=== PATIENT | female | born 1990 | race Caucasian/White ===

== ENCOUNTER 2019-04-02 14:05 | Observation (INO) | payer MEDICAID ==
[2019-04-02] MEDS ORDERED: PREN-96 PO (14:32)
== END 2019-04-02 15:45 | disposition home or self-care (01) | DRG 566 ==
LOC: LDRP 14:05
PROVIDERS: ADMIT Obstetrics & Gynecology; ATTEND Obstetrics & Gynecology
DX: O26.892 Other specified pregnancy related conditions, second trimester (principal); O36.8130 Decreased fetal movements, third trimester, not applicable or unspecified; R10.9 Unspecified abdominal pain; Z3A.25 25 weeks gestation of pregnancy
CPT/HCPCS: 59025; 81002; G0378

== ENCOUNTER 2019-06-27 16:35 | Observation (INO) | payer MEDICAID ==
[~2019-06-27 16:35] MED LIST: PREN-96 PO
[2019-06-27] MEDS ORDERED: ALBUAER3 IN (17:35)
== END 2019-06-27 18:40 | disposition home or self-care (01) | DRG 566 ==
LOC: LDRP 16:35
PROVIDERS: ADMIT Specialist; ATTEND Specialist
DX: O62.9 Abnormality of forces of labor, unspecified (principal); O36.8130 Decreased fetal movements, third trimester, not applicable or unspecified; Z3A.38 38 weeks gestation of pregnancy
CPT/HCPCS: 59025; 76818; 81002; G0378

== ENCOUNTER 2019-06-28 09:02 | Observation (INO) | payer MEDICAID ==
[~2019-06-28 09:02] MED LIST changes: +ALBUAER3 IN
== END 2019-06-28 10:40 | disposition home or self-care (01) | DRG 566 ==
LOC: LDRP 09:02
PROVIDERS: ADMIT Specialist; ATTEND Specialist
DX: O41.03X0 Oligohydramnios, third trimester, not applicable or unspecified (principal); J45.909 Unspecified asthma, uncomplicated; O99.513 Diseases of the respiratory system complicating pregnancy, third trimester; Z3A.38 38 weeks gestation of pregnancy
CPT/HCPCS: 59025; 76818; 81002; G0378

== ENCOUNTER 2019-07-01 08:50 | Observation (INO) | payer MEDICAID ==
[2019-07-01] MEDS ORDERED: FAM20T PO (10:08)
== END 2019-07-01 12:20 | disposition home or self-care (01) | DRG 566 ==
LOC: LDRP 09:20
PROVIDERS: ADMIT Specialist; ATTEND Specialist
DX: O41.03X0 Oligohydramnios, third trimester, not applicable or unspecified (principal); O26.893 Other specified pregnancy related conditions, third trimester; J45.909 Unspecified asthma, uncomplicated; R11.0 Nausea; O99.513 Diseases of the respiratory system complicating pregnancy, third trimester; Z3A.38 38 weeks gestation of pregnancy
CPT/HCPCS: 59025; 76818; 81002; G0378

== ENCOUNTER 2019-07-04 10:50 | Observation (INO) | payer MEDICAID ==
[~2019-07-04 10:50] MED LIST changes: +FAM20T PO
== END 2019-07-04 12:43 | disposition home or self-care (01) | DRG 566 ==
LOC: LDRP 10:50
PROVIDERS: ADMIT Obstetrics & Gynecology; ATTEND Obstetrics & Gynecology
DX: O99.513 Diseases of the respiratory system complicating pregnancy, third trimester (principal); J45.909 Unspecified asthma, uncomplicated; Z3A.39 39 weeks gestation of pregnancy
CPT/HCPCS: 59025; 76818; 81002; G0378

== ENCOUNTER 2019-07-07 08:30 | Observation (INO) | payer MEDICAID ==
[2019-07-07 11:16] LABS: Basophils # (auto) 0.1 uL; Red Blood Cells 4.19 10^6/uL (4.0-5.20)
[2019-07-07 11:17] LABS: Basophils % (auto) 0.5 % (0.0-2.0); Eosinophils # (auto) 0.2 uL; Eosinophils % (auto) 1.2 % (0.0-7.0); Hematocrit 31.1 % (36.0-46.0); Lymphocytes # (auto) 2.1 uL; Lymphocytes % (auto) 15.9 % (10.0-50.0); Mean Corpuscular Hgb Conc. 32.3 g/dL (32.0-36.0); Mean Corpuscular Volume 74.2 fL (80.0-100.0); Monocytes # (auto) 0.8 uL; Monocytes % (auto) 6.1 % (0.0-12.0); Neutrophils # (auto) 10.2 uL; Neutrophils % (auto) 76.3 % (37.0-80.0); Platelet Count (auto) 433 10^3/uL (140-450); White Blood Cell 13.3 10^3/uL (4.4-10.8)
[2019-07-08 05:06] LABS: RPR Non Reactive (Non Reactive)
== END 2019-07-07 11:03 | disposition home or self-care (01) | DRG 566 ==
LOC: LDRP 08:30
PROVIDERS: ADMIT Specialist; ATTEND Specialist
DX: O62.9 Abnormality of forces of labor, unspecified (principal); O26.893 Other specified pregnancy related conditions, third trimester; J45.909 Unspecified asthma, uncomplicated; R51 Headache; O99.513 Diseases of the respiratory system complicating pregnancy, third trimester; Z3A.39 39 weeks gestation of pregnancy
CPT/HCPCS: 36415; 59025; 76818; 81002; 85025; 86592; G0378

== ENCOUNTER 2019-07-09 13:42 | Observation (INO) | payer MEDICAID | END 2019-07-09 14:45 | disposition home or self-care (01) | DRG 566 | LOC: LDRP 13:42 | PROVIDERS: ADMIT Obstetrics & Gynecology; ATTEND Obstetrics & Gynecology | DX: O99.513 Diseases of the respiratory system complicating pregnancy, third trimester (principal); J45.909 Unspecified asthma, uncomplicated; Z3A.39 39 weeks gestation of pregnancy | CPT/HCPCS: 59025; 76818; 81002; G0378 ==

== ENCOUNTER 2019-08-26 09:10 | Day surgery (SDC) | payer MEDICAID ==
[~2019-08-26] VITALS: Ht 170.2 cm; Wt 97.1 kg
[~2019-08-26 09:10] MED LIST changes: +IBU600T PO
[2019-08-26] MEDS ORDERED: ceFAZolin 1GM/50ML 50 ML IV ONE ×2 (09:21→09:22)
[2019-08-26] MEDS ORDERED: SODIUM CHLORIDE LOCK 10 ML ONE (09:23)
[2019-08-26] MEDS ORDERED: ONDANSETRON HCL 4 MG/2 ML VIAL ONE (09:23)
[2019-08-26] MEDS ORDERED: PROPOFOL 10 MG/ML 20 ML IV ONE (09:23)
[2019-08-26] MEDS ORDERED: MEPERIDINE HCL (25 MG/ML) 1ML VIAL ONE (09:23)
[2019-08-26] MEDS ORDERED: MIDAZOLAM HCL 1MG/1ML-2 ML VIAL ONE (09:23)
[2019-08-26] MEDS ORDERED: ROCURONIUM 10MG/ML 10ML VIAL IV ONE (09:23)
[2019-08-26] MEDS ORDERED: fentaNYL CITRATE 100 MCG/2 ML VL ONE (09:23)
[2019-08-26] MEDS ORDERED: SUCCINYLCHOLINE CHLORIDE 20 MG/ML 10ML VIAL IV ONE (09:35)
[2019-08-26] MEDS ORDERED: KETOROLAC TROMETH 30 MG/ML 1ML VIAL IV ONE (09:45)
[2019-08-26] MEDS ORDERED: METOCLOPRAMIDE HCL 5MG/ml INJ 2ml VIAL IV PRN (09:45)
[2019-08-26] MEDS ORDERED: fentaNYL CITRATE 100 MCG/2 ML VL IV PRN (09:45)
[2019-08-26] MEDS ORDERED: MORPHINE SULFATE 4 MG/ML SYR/VIAL IV PRN (09:45)
[2019-08-26] MEDS ORDERED: GLYCOPYRROLATE 0.2 MG/ML 1ML VIAL ONE (10:26)
[2019-08-26] MEDS ORDERED: NEOSTIGMINE 1 MG/ML INJ (10mg/10ML VIAL) ONE (10:26)
[2019-08-26] MEDS ORDERED: KETOROLAC TROMETH 60MG/2ML VIAL ONE (10:44)
[2019-08-26] MEDS ORDERED: LACTATED RINGER'S 1,000 ML IV SCH (10:50)
[2019-08-26] MEDS ORDERED: ONDANSETRON HCL 4 MG/2 ML VIAL IV PRN (11:00)
[2019-08-26] MEDS: HYDROmorphone HCL 2 MG/ML VL IV PRN ×2 (11:10→11:20)
[2019-08-26 11:45] VITALS: BP 123/70
== END 2019-08-26 12:55 | disposition home or self-care (01) ==
LOC: SUR 09:10
PROVIDERS: ATTEND Specialist
DX: Z30.2 Encounter for sterilization (principal); E66.9 Obesity, unspecified; J45.909 Unspecified asthma, uncomplicated; D64.9 Anemia, unspecified; Z68.33 Body mass index [BMI] 33.0-33.9, adult
CPT/HCPCS: 58671; 86850; 86900; 86901; J0330; J0690; J1170; J1885; J2175; J2250; J2405; J2704; J2765; J3010